=== PATIENT | male | born 1960 | race Caucasian/White ===

== ENCOUNTER → 2019-12-04 11:57 | Outpatient (BNVA) | payer MEDICARE, SELFPAY | PROVIDERS: Family Provider Nurse Practitioner Family; PCP Nurse Practitioner Family; Visit Provider Family Medicine | DX: I10 Essential (primary) hypertension (principal) | CPT/HCPCS: 80053; 80061; 84443; 85025 ==

== ENCOUNTER → 2021-06-15 14:00 | Outpatient (BNVA) | payer MEDICARE, SELFPAY | PROVIDERS: Family Provider Nurse Practitioner Family; PCP Family Medicine; Visit Provider Nurse Practitioner Family | DX: I10 Essential (primary) hypertension (principal); Z12.5 Encounter for screening for malignant neoplasm of prostate | CPT/HCPCS: 80053; 80061; 84443; 85025; G0103 ==

== ENCOUNTER 2021-10-22 10:40 | Emergency (ER) | payer MEDICARE, SELFPAY ==
[2021-10-22 10:45] VITALS: BP 163/68; PULSE 100; RESP 20; TEMP 37.3; O2SAT 95; BMI 41.5
--- NOTE | 2021-10-22 11:05 | XRR_ITS ---
PROCEDURE INFORMATION: Exam: XR Chest Exam date and time: 10/22/2021 11:26 AM Age: 60 years old Clinical indication: Other: Near syncope TECHNIQUE: Imaging protocol: XR of the chest. Views: 1 view. COMPARISON: CR Chest 1 [place] [id number] 08/10/2018 5:09 PM FINDINGS: Lungs: There is soft tissue density along the lateral aspect of the left hemithorax measuring 11.9 x 6.6 cm in the craniocaudad/transverse dimensions. Pleural spaces: Unremarkable. No pleural effusion. No pneumothorax. Heart/Mediastinum: Unremarkable. No cardiomegaly. Bones/joints: Unremarkable. XR/XR chest 1V portable [id number] IMPRESSION: Soft tissue density along the lateral aspect of the left hemithorax is nonspecific. CT scan of the thorax with contrast is recommended for further evaluation.
--- NOTE | 2021-10-22 11:05 | ECG_ITS ---
[facility] Test Date: 2021-10-22 Pat Name: Tavon Aguilera Department: Room: Gender: Male [employer]: : 1960 Requested By: Roby Hennessy Order Number: [id number] Smith MD: Radha Joya M.D. Measurements Intervals [place] Rate: 102 P: -7 NH: 191 QRS: -17 QRSD: 100 T: 52 QT: 365 QTc: 477 Interpretive Statements SINUS TACHYCARDIA POSSIBLE LEFT ATRIAL ENLARGEMENT [-0.1mV P-WAVE IN V1/V2] LOW QRS VOLTAGE IN PRECORDIAL LEADS [QRS DEFLECTION < 1.0 mV IN CHEST LEADS] NONSPECIFIC T-WAVE ABNORMALITY Compared to ECG 08/10/2018 17:18:49 T-wave abnormality now present Sinus rhythm no longer present Electronically Signed On 10-22-2021 16:16:22 CDT by Radha Joya M.D. [id number]
--- NOTE | 2021-10-22 11:08 | ED_ITS ---
HPI - Weakness General: Chief complaint: Weakness Stated complaint: LEFT LEG PAIN S/P FALL Time Seen by Provider: 10/22/21 10:45 Source: patient Mode of arrival: EMS Limitations: no limitations History of Present Illness: Patient comes to the emergency department via EMS. He apparently was engaged in ambulating about his home this morning and after short duration of ambulation felt generally weak and felt shaky. He states that he got to a chair and let himself down to the floor. He states that once he got down on the floor he could not get back up and he could not wake his [id number] who he lives with. After couple hours he was able to wake his [id number] who called EMS to aid in lift him from the floor. Upon arrival EMS offered to bring him to the emergency department and he agreed. He states that the episode did not involve a loss of consciousness, palpitations, difficulty with speech, difficulty with any focal weakness just generalized weakness. He states he has been generally eating and drinking normally has not been recently ill with fever nausea vomiting diarrhea etc. He quit smoking a couple months ago. He states he had Covid last fall. He is currently unimmuni zed against Covid. He states he does drink about 3 beers daily. He states he does not use oxygen at home but has had a cough since he stopped smoking. He denies difficulty with speech, headache, other symptoms currently. He has been having some left leg pain for several months but denies any injury. MD Complaint: generalized weakness and lack of energy Location: generalized Associated symptoms: Reports no associated symptoms; Denies chest pain, chills, dysuria, easy bruising, fever(s), headache(s), nausea, syncope or vomiting Review of Systems Const: Denies: fever(s), chills, body aches, change in appetite or change in weight Eyes: Denies: change in vision or blurry vision ENMT: Denies: throat pain, odynophagia or nasal congestion Card: Denies: chest pain, palpitations, irregular heart rhythm, lightheadedness or syncope Resp: Reports: non-productive cough; Denies: wheezing or stridor GI: Denies: abdominal pain, nausea, vomiting or diarrhea : Denies: flank pain, difficulty urinating, dysuria or urinary frequency Musc: Reports: extremity pain; Denies: neck pain, back pain, extremity swelling or muscle cramps Skin/Breast: Reports: pruritus and dry skin; Denies: rash Neuro: Denies: headache(s), frequent falls, dizziness, vertigo, Slurred speech present or difficulty communicating thoughts Endo: Reports: polydipsia; Denies: polyuria or tired all the time Chacho/Lymph: Denies: easy bruising or easy bleeding PFSH ED PFSH: Medical History Essential hypertension Hyperlipidemia Social History Smoking and tobacco status: current every day smoker (10-15 cigarettes/day) cigarettes [ Other cigarette details: 10-15/day] Alcohol intake: current Alcohol intake frequency: 3 or more drinks per day Alcohol type: beer Lives independently: No Household members: family Marital status: Unknown Physical Exam Narrative: EXAM NARRATIVE: The patient is alert somewhat disheveled with a unkept appearance. He is has sweat shirt and sweatpants on which is covered extensively with dog hair and there is dirt on his socks and on his shoes. He answers questions in a goal- directed fashion and is cooperative. Const: COMMON NORMALS: patient oriented x3 and alert GENERAL APPEARANCE: disheveled NUTRITIONAL APPEARANCE: overweight HENMT: COMMON NORMALS: normocephalic, atraumatic, Normal nasal mucous membranes and turbinates present and moist oral mucous membranes HEAD & SCALP: normocephalic and atraumatic FACE & SINUS: normal facial exam and face symmetric NOSE: Normal nasal mucous membranes and turbinates present Eye: COMMON NORMALS: Equal, round and reactive pupils present, EOMs intact bilaterally and no scleral icterus PUPIL: Yes Equal, round and reactive pupils present Neck/C-Spine: COMMON NORMALS: full ROM, no lymphadenopathy, supple, no JVD and No carotid bruits Lymph: LYMPHATIC: no lymphadenopathy noted Chest: COMMONS NORMALS: normal inspection of the chest and normal palpation of entire chest wall Resp: COMMON NORMALS: normal respiratory effort, No retractions, No use of accessory muscles and clear to auscultation bilaterally EFFORT & INSPECTION: Yes able to speak in complete sentences AUSCULTATION: clear to auscultation bilaterally Cardio: COMMON NORMALS: no JVD, regular rate, regular rhythm and Peripheral pulses 2+ throughout RATE: regular rate RHYTHM: regular rhythm HEART SOUNDS: Murmur heart sound present (2/6 left sternal border) systolic PERIPHERAL PULSES: Peripheral pulses 2+ throughout GI: COMMON NORMALS: Normal to inspection, nondistended, normoactive bowel sounds present (Healed lower abdomen surgical scars), Soft to palpation, non- tender, no masses and no bruits PALPATION: Yes Soft to palpation : COMMON NORMALS: Yes no CVA tenderness BLADDER/KIDNEY EXAM: Yes no CVA tenderness Back/Pelvis: COMMON NORMALS: no CVA tenderness, thoracic and lumbar spine normal to inspection, no thoracic nor lumbar tenderness and straight leg raise negative bilaterally Extremity: COMMON NORMALS: full ROM, capillary refill normal, no calf tenderness and no pedal edema NARRATIVE EXTREMITY EXAM: Examination with attention of his left lower extremity reveals no tenderness over the greater trochanter. Range of motion at the left hip is normal with r espect to flexion extension internal and external rotation. He has some tenderness in the posterior portion of his left knee. There is no joint effusion. Range of motion is normal. There is no calf tenderness. Ankle and foot range of motion are normal without any deformity. Neuro: COMMON NORMALS: patient oriented x3, moves all extremities, no focal motor deficits and no sensory deficits noted SENSORIUM/ORIENTATION: Yes alert CRANIAL NERVES: Yes CN normal except as noted Psych: COMMON NORMALS: mental status grossly normal and cooperative Skin: COMMON NORMALS: turgor normal NARRATIVE SKIN EXAM: He has very dry and flaky epidermis on his lower extremities and feet. GENERAL SKIN EXAM: turgor normal, no ecchymo and no erythema Course Reevaluation(s): Reevaluation #1: Received call from virtual radiology regarding a large left lung mass. See full report. He does have associated leukocytosis and hypokalemia so likely this is due to need further inpatient evaluation. Time: 13:54 Consultations: Consultation #1: I discussed with our hospitalist service but unfortunately we do not have pulmonology support and will not have for over a week therefore will need to plan on transfer to a facility who can provide adequate support. Consultation #2: I was able to speak with the admission team at [facility] who agreed to accept the patient in transfer. The patient will be accepted by Dr. Chantelle Mayes. Time: 15:46 Vital Signs: Vital signs: Vital Signs Temperature 99.1 F 10/22/21 10:45 Pulse Rate 101 H 10/22/21 13:04 Respiratory Rate 24 H 10/22/21 13:04 Blood Pressure 136/61 10/22/21 13:04 Pulse Oximetry 92 10/22/21 13:04 MDM - Weakness Medical Decision Making Patient with global weakness who on presentation was found to have hypoxia leukocytosis and work-up discovered in addition to laboratory abnormalities a left lung mass of significant size. Given the fact that he has a indeterminate troponin elevation with normal EKG and no symptoms to suggest ACS or other worrisome cardiac condition at this time addition to hypoxia he will need to be evaluated as an inpatient rather than outpatient evaluation. We have made arrangements to transfer this patient in stable condition to [facility] in [place]. Medical Records I reviewed the patient's medical records. Lab Data : 10/22/21 11:49 10/22/21 11:49 Radiology Impressions Chest X-Ray 10/22/21 11:05 IMPRESSION: Soft tissue density along the lateral aspect of the left hemithorax is nonspecific. CT scan of the thorax with contrast is recommended for further evaluation. Chest CTA 10/22/21 13:16 IMPRESSION: 1. There is a mass eroding the lateral aspects of the left 4th and 5th ribs extending into the lateral aspect of the left upper and lower lobes as described above. Associated lymphadenopathy. 2. Multivessel atherosclerotic disease which involves the coronary arteries. 3. There are centrilobular emphysematous changes in the bilateral lungs. ADDENDUM: 10/22/21 1351 CRITICAL RESULT: The study was personally discussed on the telephone with ROBY León on 10/22/2021 1:50 PM CDT. The results were understood and acknowledged. Laboratory Results WBC 22.3 10^3/uL (4.0-10.0) H 10/22/21 11:49 RBC 3.68 10^6/uL (4.1-5.3) L 10/22/21 11:49 Hgb 11.0 g/dL (11.7-16.6) L 10/22/21 11:49 Hct 34.1 % (42.0-52.0) L 10/22/21 11:49 MCV 92.7 fl (80-94) 10/22/21 11:49 MCH 29.9 pg (28.0-34.0) 10/22/21 11:49 MCHC 32.3 g/dL (30.0-36.0) 10/22/21 11:49 RDW 14.4 % (12.1-15.1) 10/22/21 11:49 Plt Count 294 10^3/cmm (130-400) 10/22/21 11:49 MPV 9.6 fL (7.4-10.4) 10/22/21 11:49 Neut % (Auto) 82.9 % 10/22/21 11:49 Lymph % (Auto) 9.1 % 10/22/21 11:49 Taney % (Auto) 6.8 % 10/22/21 11:49 Eos % (Auto) 0.3 % 10/22/21 11:49 Baso % (Auto) 0.5 % 10/22/21 11:49 Neut # (Auto) 18.47 10^3/uL (1.8-7.7) H 10/22/21 11:49 Lymph # (Auto) 2.0 10^3/uL (0.8-4.8) 10/22/21 11:49 Taney # (Auto) 1.5 10^3/uL (0.2-0.9) H 10/22/21 11:49 Eos # (Auto) 0.1 10^3/uL (0.0-0.8) 10/22/21 11:49 Baso # (Auto) 0.1 10^3/uL (0.0-0.1) 10/22/21 11:49 Nucleated RBC % (auto) 0 % 10/22/21 11:49 Nucleated RBCs # 0.0 /100WBC 10/22/21 11:49 D-Dimer 2.81 ug/mIFEU (0-0.59) H 10/22/21 11:49 Sodium 135 mmol/L (136-145) L 10/22/21 11:49 Potassium 2.9 mmol/L (3.5-5.1) L 10/22/21 11:49 Chloride 97 mmol/L (98-107) L 10/22/21 11:49 Carbon Dioxide 25 mmol/L (22-29) 10/22/21 11:49 Anion Gap 15.9 (5-19) 10/22/21 11:49 BUN 7 mg/dL (8-23) L 10/22/21 11:49 Creatinine 0.9 mg/dL (0.7-1.2) 10/22/21 11:49 GFR Calculation 85.8 mL/min (90-130) L 10/22/21 11:49 Glucose 99 mg/dL (65-115) 10/22/21 11:49 Calculated Osmolality 278 mOsm/kg (285-295) L 10/22/21 11:49 Calcium 11.0 mg/dL (8.5-10.5) H 10/22/21 11:49 Total Bilirubin 0.7 mg/dL (0.15-1.2) 10/22/21 11:49 AST 36 U/L (0-40) 10/22/21 11:49 ALT 19 U/L (0-41) 10/22/21 11:49 Alkaline Phosphatase 184 IU/L (40-130) H 10/22/21 11:49 Troponin T Gen 5 ng/L 42 ng/L (0-15) H 10/22/21 11:49 NT-Pro-B Natriuret Pep 1281 pg/mL (0-125) H 10/22/21 11:49 Total Protein 7.1 g/dL (6.6-8.7) 10/22/21 11:49 Albumin 2.9 g/dL (3.5-5.2) L 10/22/21 11:49 Globulin 4.2 g/dL (1.3-4.6) 10/22/21 11:49 EKG Data EKG 1: I personally reviewed and interpreted this EKG as follows: EKG interpretation time: Interpretation: Resting EKG reveals a sinus tachycardia 102 bpm. He has normal MI interval and normal QRS duration. QTc intervals normal. He has loss of anterior forces noted on the precordial leads. No acute ST-T wave changes noted. No prior EKGs available within the system. Discharge Plan Discharge Clinical Impression: Mass of left lung, Hypokalemia, Leukocytosis, Elevated troponin I level Condition: Stable Prescriptions: No Action amlodipine 10 mg tablet 10 mg PO DAILY 0RF lisinopril 40 mg tablet 40 mg PO DAILY 0RF Referrals: Alejandra Roy MD [Primary Care Provider] - Coding Level of Care Code ED Flux Mixer for Chg Fwd Exam Comprehensive
[2021-10-22 11:34] VITALS: BP 121/62; PULSE 97; RESP 25; O2SAT 94
[2021-10-22 12:04] VITALS: BP 142/72; PULSE 99; RESP 23; O2SAT 93
[2021-10-22 12:04] LABS: Basophils # 0.1 10^3/uL (0.0-0.1); Basophils % 0.5 %; Eosinophils # 0.1 10^3/uL (0.0-0.8); Eosinophils % 0.3 %; Hematocrit 34.1 % (42.0-52.0); Lymphocytes % 9.1 %; Mean Corpuscular HGB Conc 32.3 g/dL (30.0-36.0); Mean Corpuscular Hemoglobin 29.9 pg (28.0-34.0); Mean Corpuscular Volume 92.7 fl (80-94); Mean Platelet Volume 9.6 fL (7.4-10.4); Monocytes # 1.5 10^3/uL (0.2-0.9); Monocytes % 6.8 %; Neutrophils # 18.47 10^3/uL (1.8-7.7); Neutrophils % 82.9 %; Nucleated Red Blood Cells % 0 %; Platelet Count 294 10^3/cmm (130-400); Red Blood Count 3.68 10^6/uL (4.1-5.3); Red Cell Distribution Width 14.4 % (12.1-15.1); White Blood Count 22.3 10^3/uL (4.0-10.0)
[2021-10-22 12:32] LABS: Troponin T (5th) Once 42 ng/L (0-15)
[2021-10-22 12:37] LABS: Alanine Aminotransferase 19 U/L (0-41); Albumin Level 2.9 g/dL (3.5-5.2); Alkaline Phosphatase 184 IU/L (40-130); Anion Gap 15.9 (5-19); Aspartate Amino Transferase 36 U/L (0-40); Blood Urea Nitrogen 7 mg/dL (8-23); Carbon Dioxide 25 mmol/L (22-29); Chloride 97 mmol/L (98-107); Creatinine Clr Calc Pharmacy 110.4201; Globulin 4.2 g/dL (1.3-4.6); Glomerular Filtration Rate 85.8 mL/min (90-130); Glucose 99 mg/dL (65-115); NT Pro B Type Natriuretic Pept 1281 pg/mL (0-125); Osmolality Calculated 278 mOsm/kg (285-295); Sodium 135 mmol/L (136-145); Total Bilirubin 0.7 mg/dL (0.15-1.2); Total Protein 7.1 g/dL (6.6-8.7)
[2021-10-22 12:44] LABS: Potassium 2.9 mmol/L (3.5-5.1)
--- NOTE | 2021-10-22 12:59 | PC.NURSE ---
critical lab value potassium 2.9 received. Physician notified. No new orders at this time
[2021-10-22 13:04] VITALS: BP 136/61; PULSE 101; RESP 24; O2SAT 92
[2021-10-22 13:04] LABS: D Dimer 2.81 ug/mIFEU (0-0.59)
--- NOTE | 2021-10-22 13:16 | CTR_ITS ---
PROCEDURE INFORMATION: Exam: CTA Chest With Contrast Exam date and time: 10/22/2021 1:28 PM Age: 60 years old Clinical indication: Shortness of breath and other: Elevated d-dimer; Additional info: Hypoxia with elevated d-dimer TECHNIQUE: Imaging protocol: Computed tomographic angiography of the chest with contrast. 3D rendering (Not supervised by radiologist): MIP and/or 3D reconstructed images were created by the technologist. Radiation optimization: All CT scans at this facility use at least one of these dose optimization techniques: automated exposure control; mA and/or kV adjustment per patient size (includes targeted exams where dose is matched to clinical indication); or iterative reconstruction. Contrast material: OMNI 350; Contrast volume: 78 ml; Contrast route: INTRAVENOUS (IV); COMPARISON: CR (CHEST, ) 10/22/2021 11:26 AM RADIATION DOSE METRICS: Total DLP (mGy-cm): 593.42 FINDINGS: Pulmonary arteries: Normal. No pulmonary emboli. Aorta: Unremarkable. No aortic aneurysm. No aortic dissection. Lungs: There are centrilobular emphysematous changes in the bilateral lungs. Pleural spaces: Unremarkable. No pneumothorax. No pleural effusion. Heart: Multivessel atherosclerotic disease which involves the coronary arteries. Lymph nodes: There is mediastinal and left perihilar lymphadenopathy. Bones/joints: There is a mass the eroding the lateral aspects of the left 4th and 5th ribs extending into the lateral aspects of the left upper and lower lobes measuring 9.6 x 8.0 by 11.0 cm in the craniocaudad/transverse/AP dimensions. Old/healed left 7th rib fracture site. Soft tissues: Unremarkable. CT/CT angio chest PE protcl [id number] IMPRESSION: 1. There is a mass eroding the lateral aspects of the left 4th and 5th ribs extending into the lateral aspect of the left upper and lower lobes as described above. Associated lymphadenopathy. 2. Multivessel atherosclerotic disease which involves the coronary arteries. 3. There are centrilobular emphysematous changes in the bilateral lungs.
[2021-10-22] MEDS: iohexol 350 mg/mL 100 mL Btl IV (13:29)
[2021-10-22] MEDS: potassium bicarb 25 mEq Tablet 50 MEQ PO (13:39)
[2021-10-22 15:59] LABS: Add Urine Microscopic? NO; Charge for UA Resulting for Rev
[2021-10-22 16:23] LABS: Bilirubin Urine Neg (Negative); Blood Urine Neg (Negative); Glucose Urine UA Norm (Normal); Ketones Urine Negative (Negative); Leukocyte Esterase Urine Negative (Negative); Nitrate Urine Negative (Negative); Protein Urine Neg (Negative); Urine Appearance Clear (CLEAR); Urine Color Yellow (Yellow); Urobilinogen Urine Norm (Negative); pH Urine 6.5 (5-7)
[2021-10-22 16:51] VITALS: BP 99/60; PULSE 103; RESP 28; O2SAT 95
--- NOTE | 2021-10-22 17:08 | PC.NURSE ---
Report called to Maribel Hernandez. Report given over the phone to Jo-Ann HAGEN. PT signed consent to transfer.
[2021-10-22 18:03] VITALS: PULSE 107; RESP 20; O2SAT 91
== END 2021-10-22 18:07 | disposition short-term general hospital (02) ==
PROVIDERS: Emergency Provider Emergency Medicine; PCP Family Medicine
DX: R91.8 Other nonspecific abnormal finding of lung field (principal); D72.829 Elevated white blood cell count, unspecified; Z86.16 Personal history of COVID-19; Z28.310 Unvaccinated for COVID-19; F17.210 Nicotine dependence, cigarettes, uncomplicated; E87.6 Hypokalemia; R77.8 Other specified abnormalities of plasma proteins; R53.1 Weakness
CPT/HCPCS: 71045; 71275; 80053; 81003; 83880; 84484; 85025; 85378; 87040; 93005; 99283; Q9967